=== PATIENT | female | born 1945 | race Caucasian/White ===

== ENCOUNTER 2016-08-28 07:14 | Day surgery (SDC) | payer MEDICARE, OTHER ==
[~2016-08-28] VITALS: Ht 170.2 cm; Wt 63.0 kg
[2016-08-28] VITALS (10 sets, daily range): BP systolic 101–116; BP diastolic 45–67; PULSE 68–91; RESP 10–17; O2SAT 96–99
[~2016-08-28 07:14] MED LIST: BUPR100T7 PO; CeFAZolin 2 Gm/50 mL D5W IV Premix IV ONE; FLUO20CA25 PO; LEVO75CA2 PO; Lactated Ringer's 1,000 ML IV ONE; Vancomycin 1 Gm/200 mL NS Premix IV ONE
[2016-08-28] MEDS ORDERED: Propofol 10 mg/mL 20 mL Inj ONE (07:15)
[2016-08-28] MEDS ORDERED: HYDROmorphone 1 mg/mL Inj ONE (07:15)
[2016-08-28] MEDS ORDERED: fentaNYL-PF 50 mCg/mL 2 mL Inj ONE (07:15)
[2016-08-28] MEDS ORDERED: Dexamethasone 4 mg/mL Inj ONE (07:15)
[2016-08-28] MEDS ORDERED: Ondansetron 2 mg/mL 2 mL Inj ONE (07:15)
[2016-08-28] MEDS ORDERED: EPHEDrine/NS 5 mg/mL 5 mL Syringe ONE (07:15)
[2016-08-28] MEDS ORDERED: Vancomycin 1,000mg/200 mL NS IV ONE (07:36)
[2016-08-28] MEDS ORDERED: Lactated Ringer's 1,000 ML IV ONE (08:03)
--- NOTE | 2016-08-28 08:04 | PCM.HPANE ---
Patient Data Surgeon Admitting Provider: Attending Provider:Jimi Villagomez MD Primary Care Physician:Cristo Garcia MD Other [place] [facility] Reason for Visit Right Knee Arthritis Ht/WT & BMI Height (Feet): 5 Height (Inches): 7 Weight (Kilograms): 62.95 Body Mass Index 21.00 Allergies Coded Allergies: zolpidem (Verified Allergy, Unknown, nightmares, 08/26/16) Past Anesthesia History Anesthesia History: Denies:: Abnormal Airway, Anesthesia Reactions, Difficult Intubation, Fam Anesthesia Reaction, Fam Malignant Hypertherm, Malignant Hyperthermia Diabetes History Hx Diabetes?: No MRSA MRSA: No Medications Hypertension Medication: No Home Meds Incl Beta Ryan: No Reported Medications Bupropion ER (Wellbutrin SR)100 Mg Tablet.er100 Mg PO BID Ref 0 08/26/16 Levothyroxine (Tirosint)75 Mcg Rbgveyo53 Mcg PO DAILY 08/26/16 Fluoxetine 20 Mg Hkeumpk18 Mg PO DAILY Ref 0 08/26/16 History History of ENT Problems?: No HEENT History: Positive for:: Hearing Problem Denies:: Abnormal Airway Cataracts Difficult Intubation Dysphagia Glaucoma Sinus Problem TMJ Denture Type: Full- Upper Teeth Condition: Within Normal Limits Other HEENT Pertinent History: hx of lasik surgery- bilateral Hx of Heart Problems?: No Cardiovascular History: Denies:: AICD Abdominal Aortic Aneurism Cardiac Surgery Chest Pain Congestive Heart Failure Coronary Artery Disease Edema Heart Murmur Hypertension Irregular Heartbeat Pacemaker Peripheral Vascular Rheumatic Fever Hx of Respiratory Problem?: No Respiratory History: Denies:: Asthma (exercise induced occasionally) COPD Emphysema Oxygen Administration Pneumonia Tuberculosis Use of C-PAP Machine Use of Inhalers / NEBS Hx Neurologic Problems?: Yes Neurological History: Denies:: CVA Dementia Dizziness Headaches (remote hx of, not current ) Multiple Sclerosis Parkinson's Disease Seizures TIA Other Neurological Pertinent: ground level fall with concussion, facial bruising no loss of consciousness- no residual at this time - missed a step Hx of GI Problems?: Yes Other GI Pertinent History: prior hx of Ulcerative Colitis, colectomy with ileostomy Hx of Problems?: No Genitourinary History: Denies:: Kidney Stones Urinary Tract Infection Female Hx: Positive for:: Problems with Breasts? (hx of bilateral implants removed, ) Denies:: Currently Skin History: Denies:: History Skin Disorders? Pressure Ulcers Hx Musculoskeletal Problems?: Yes Musculoskeletal History: Positive for:: Back Injury (prior hx injections) Degenerative Joint Musculoskeletal Trauma (right knee current admission problem) Osteoarthritis Denies:: Joint Replacement Myasthenia Gravis Systemic Lupus Hx of Psycho/Social Problems?: No Psycho Social History: Denies:: Anxiety Hx Depression Hx Surgeries?: Yes (total colectomy, ileostotomy, breast implant removal, left oopherectomy) Hx Any Other Health Problems?: Yes Other History: Positive for:: Cancer (melanoma- left upper thigh (8 yrs ago)) Thyroid Disease History Blood Transfusions: Positive for:: Accept Blood Products? Blood Transfusions (1988- following surgery) Denies:: Blood Transfuse Reaction Hx Diabetes: No Hx Alcohol Use: NoHx Substance Use: NoHave You Smoked inLast 12 mo: No Stop/Bang S-Snoring: Do You Snore Loudly: No T-Tired: feel tired, fatigued: No O-Obsered: Observed not breath: No P-Blood Pressure: treated: No B- Body Mass Index > 35 kg/m2: No A- Age over 50: Yes N- Neck Large Circumference: No G- Gender Male: No FABIANA Total Score: 1 FABIANA Risk Assessment: Low Risk, <3 Yes Risk Assessment Category Category 1A: Patient has history of documented sleep apnea, and HAS NOT received any narcotic, sedative or anesthesia administration during this stay. Category 1B: Patient has history of documented sleep apnea, and HAS received any narcotic , sedative or anesthesia administration during this stay Category 2: Patient has SUSPECTED Obstructive Sleep Apnea, and HAS received any narcotic , sedative or anesthesia administration during this stay. Category 3: Patient has SUSPECTED Obstructive Sleep Apnea and HAS NOT received narcotic, sedative or anesthesia administration during this stay. Category 4: Outpatient in Procedural Areas with known sleep apnea or who screen positive for High Risk via the STOP/BANG questionnaire. Exam Exam Vital Signs Vital Signs Date Time Temp Pulse Resp B/P Pulse Ox O2 Delivery O2 Flow Rate FiO2 08/28/16 08:01 35.7 68 17 108/49 97 Room Air General Appearance: Alert, Oriented X3, Cooperative, No Acute Distress HEENT/AIRWAY: MP 1, Neck Movement (FROM), Mouth Opening (3-4FB) Lungs: Normal Air Movement Heart: Exam Unremarkable Plan Impression Patient chart reviewed, patient interviewed and anesthestic plan with risks, benefits, and alternatives discussed, and informed consent obtained. ASA Physical Status: ASA2 Mod Systemic Disease Anesthetic Plan: GA, Regional Block (if total is required will consider doing post-op) Bene/Risks/Altern/Consents: Yes HP Complete Prior to Induction: Yes Casey Seth MD Aug 28, 2016 08:03
[2016-08-28] MEDS ORDERED: Bupivacaine Liposome 1.3% 20 mL Inj ONE (09:29)
[2016-08-28] MEDS ORDERED: Tranexamic Acid 100 mg/mL 10 mL Inj ONE (09:30)
[2016-08-28] MEDS ORDERED: Bupivacaine-MPF 0.25%/EPI 30 mL Inj INJ ONE ×2 (09:50)
[2016-08-28] MEDS ORDERED: Gentamicin 40 mg/mL 2 mL Inj IRRIGATION ONE ×2 (09:50)
[2016-08-28] MEDS ORDERED: Bupivacaine Liposome 1.3% 20 mL Inj INFILTRATE ONE ×2 (09:50)
[2016-08-28] MEDS ORDERED: HYDROmorphone 1 mg/mL Inj IVPUSH PRN (10:05)
[2016-08-28] MEDS ORDERED: Lactated Ringer's 1,000 ML IV SCH (10:05)
[2016-08-28] MEDS ORDERED: Ondansetron 2 mg/mL 2 mL Inj IVPUSH PRN (10:05)
[2016-08-28] MEDS ORDERED: Labetalol 5 mg/mL 4 mL Inj IV PRN (10:05)
[2016-08-28] MEDS ORDERED: fentaNYL-PF 50 mCg/mL 2 mL Inj IVPUSH PRN (10:05)
[2016-08-28] MEDS ORDERED: Dexamethasone 4 mg/mL Inj IVPUSH PRN (10:05)
[2016-08-28] MEDS ORDERED: Phenylephrine 10,000 mCg/mL Inj IVPUSH PRN (10:05)
[2016-08-28] MEDS ORDERED: Lactated Ringer's 500 ML IV PRN (10:05)
[2016-08-28] MEDS ORDERED: EPHEDrine Sulfate 50 mg/mL Inj IVPUSH PRN (10:05)
[2016-08-28] MEDS ORDERED: MetoCLOpramide 5 mg/mL 2 mL Inj IVPUSH PRN (10:05)
[2016-08-28] MEDS ORDERED: Atropine 0.4 mg/mL Inj IVPUSH PRN (10:05)
[2016-08-28] MEDS ORDERED: Albuterol-Ipratropium 3 mL Inhalation Solution NEB PRN (10:05)
[2016-08-28] MEDS ORDERED: hydrOXYzine Pamoate 25 mg Capsule PO PRN (10:55)
[2016-08-28] MEDS ORDERED: Ketorolac 15 mg/mL Inj IVPUSH ONE (10:55)
[2016-08-28] MEDS ORDERED: oxyCODONE-Acetamin 5-325 mg Tablet PO PRN (10:55)
--- NOTE | 2016-08-28 11:27 | OP ---
[address] [address] OPERATIVE REPORT PATIENT: NGOZI HYMAN : 1945 MR#: [id number] ADMIT: 08/28/2016 JOB ID: [id number] DATE OF SURGERY: 08/28/2016 PREOPERATIVE DIAGNOSIS(ES): Right lateral compartment osteoarthritis versus tricompartment disease. POSTOPERATIVE DIAGNOSIS(ES): Right lateral compartment osteoarthritis, isolated. SURGEON: Jimi Villagomez M.D. CHIEF ENGINEER [employer]LLING [employer] RECOVERY: Mando Mtz. Reaming Machine Operator required due to the complexity of the operation. PROCEDURE: 1. Right lateral unicompartmental knee arthroplasty. 2. Arthroscopic assessment of the medial compartment to determine appropriateness for unicompartmental knee versus total knee. INDICATIONS: This woman has failed extensive conservative treatment and elects to proceed with an arthroplasty. She is willing to accept a total knee if it were deemed indicated. Her symptoms have been uncontrolled by conservative treatment options and she understands and accepts the potential for risks and complications, which include but is not limited to infection, thromboembolic, neurovascular, implant failure and progressive arthritis in unresurfaced compartments. DESCRIPTION OF PROCEDURE: The patient was prepped and draped in the usual sterile fashion in the operating room. An anterolateral portal and anteromedial cut was established. The arthroscope was introduced and the medial compartment was evaluated. It was noted to be in excellent condition. A decision was then made to proceed. Lateral compartment revealed advanced osteoarthritis. Patellofemoral joint showed minimal chondromalacia. Following the diagnostic arthroscopy, the knee was lavaged of irrigant and the arthroscope was carefully removed. Following this, an anterolateral approach was made to the knee. A lateral based incision was made. Patellar osteophyte removed. Frontal bossing removed. The alignment apparatus was assembled and a -2 distal femoral cut was made. The tibial cut was completed with the oscillating and sagittal saws and all bone fragments, meniscal tissue and osteophytes were removed. The femur was sized to a C chamfer cutting block, fixed in appropriate position and rotation and drill holes and chamfer cuts were made. Tibia was sized to a 3 provisionally fixed. Trial reduction was performed and an 8 mm polyethylene produced appropriate soft tissue tension and alignment. Pressurized lavage was followed by pressurized cementation of the components. Excess cement was removed during the curing process and the final construct was assembled. The patient was taken to the recovery room in stable condition. Tolerated the procedure well. There were no complications.
--- NOTE | 2016-08-28 12:20 | DRSVH ---
PROCEDURE: X-RAY RIGHT KNEE, ONE OR TWO VIEWS ([id number]) INDICATIONS: POST OP right knee TECHNIQUE: 2 view(s) of the knee acquired. COMPARISON: [facility], CR, XR KNEE ARTHRITIC SERIES RT, 07/02/2016, 14:00. FINDINGS: Bones: Patient is status post partial knee joint lateral tibiofemoral arthroplasty. Hardware compon ents are in expected positions. Visualized bony structures are intact. Soft tissues: Overlying postoperative changes are noted. Drainage catheter seen overlying the knee. Soft tissue air and edema is present about the knee. IMPRESSION: Expected postoperative changes of the right knee. No acute fracture. Dictated by: Feng Flor M.D. on 08/28/2016 at 11:17 Approved by: Feng Flor M.D. on 08/28/2016 at 11:18
--- NOTE | 2016-08-28 12:55 | PCM.ANEP1 ---
Post Anesthesia PACU Phase 1 Assessment Vital Signs see anesthesia record Vital Signs Date Time Temp Pulse Resp B/P Pulse Ox O2 Delivery O2 Flow Rate FiO2 08/28/16 12:28 88 16 101/67 96 Room Air 08/28/16 11:59 80 16 114/45 98 Room Air 08/28/16 11:45 36.8 87 17 115/45 97 Room Air 08/28/16 11:40 86 16 109/52 98 Room Air 08/28/16 11:35 89 14 116/48 98 Room Air 08/28/16 11:30 89 11 112/50 96 Room Air 08/28/16 11:25 90 12 111/47 97 Room Air 08/28/16 11:20 36.7 90 10 108/50 98 Room Air 08/28/16 11:14 36.7 91 12 107/47 99 Room Air 08/28/16 08:01 35.7 68 17 108/49 97 Room Air Anesthetic Administered: GA Level of Alertness: Awake, talking GALLEGOS's with Equal Strength: Yes Pain: No Nausea or Vomiting: No CV Function & Hydration Stable: Yes Airway Device: Oxygen Delivery: Room Air Lungs: Normal Air Movement Dermatome Level: Full Sensation PACU Phase 2 Assessment Complications: No Follow up Care: No Patient Instructions Provided: N/A Casey Seth MD Aug 28, 2016 12:55
== END 2016-08-28 23:59 | disposition home or self-care (01) ==
LOC: SAS 07:14
PROVIDERS: ATTEND Orthopaedic Surgery
DX: M17.11 Unilateral primary osteoarthritis, right knee (principal); Z93.2 Ileostomy status; Z79.890 Hormone replacement therapy
CPT/HCPCS: 27446; 73560; C1713; C1776; J0690; J1100; J1170; J1580; J1885; J2250; J2405; J3010; J3370; J7120